=== PATIENT | male | born 1955 | race Caucasian/White ===

== ENCOUNTER 2021-12-27 16:25 | Emergency (ER) | payer OTHER ==
[2021-12-27] MEDS ORDERED: Acetaminophen/oxyCODONE 325-5 MG Tab PO ONE (17:02)
== END 2021-12-27 18:54 | disposition home or self-care (01) ==
LOC: MW.ED 16:25
DX: S22.31XA Fracture of one rib, right side, initial encounter for closed fracture (principal); W00.0XXA Fall on same level due to ice and snow, initial encounter
CPT/HCPCS: 71250; 71250-26; 99283; 99283-25